=== PATIENT | female | born 2005 | race Caucasian/White ===

== ENCOUNTER 2025-03-25 19:43 | Emergency (ER) | payer BC ==
[~2025-03-25] VITALS: Ht 165.1 cm; Wt 45.9 kg
[2025-03-25 20:04] VITALS: BP 139/66; PULSE 72; RESP 16; TEMP 98; O2SAT 99
[2025-03-25 21:14] LABS: LEUKOCYTE ESTERASE ,URINE TRACE (Neg); NITRITES, URINE NEGATIVE (Neg); OCCULT BLOOD,URINE NEGATIVE (Neg); UA COLLECTION TYPE CLN CATCH MIDSTREAM; URINE HCG NEGATIVE (NEG)
[2025-03-25 21:24] LABS: SQUAMOUS EPITHELIAL CELL,UR FEW /LPF (FEW)
== END 2025-03-26 00:48 | disposition left against medical advice (07) ==
LOC: ER 19:44
DX: R11.10 Vomiting, unspecified (principal); Z79.899 Other long term (current) drug therapy; Z53.21 Procedure and treatment not carried out due to patient leaving prior to being seen by health care provider
CPT/HCPCS: 81001; 81025; 87088